=== PATIENT | female | born 1995 | race American Indian/Alaskan Native ===

== ENCOUNTER 2022-07-09 17:23 | Emergency (ER) | payer SELFPAY ==
[2022-07-09 20:00] VITALS: BP 143/89
[2022-07-10] MEDS ORDERED: HYDROcodone/ACETAMINOPHEN 5-325 MG TAB PO ONE (03:47)
[2022-07-10] MEDS ORDERED: IBUPROFEN 800 MG TAB PO ONE (03:47)
--- NOTE | 2022-07-10 04:27 | XRay Report ---
RIGHT HAND 3 VIEW(S) INDICATION / CLINICAL INFORMATION: hand injury, punched glass, pain, swelling COMPARISON: None available. FINDINGS: BONES / JOINT(S): No acute fracture or subluxation. No significant arthritis. SOFT TISSUES: No significant abnormality. ADDITIONAL FINDINGS: None. IMPRESSION: 1. No acute findings. Signer Name: Senthil Neves MD Signed: 07/10/2022 4:23 AM Workstation Name: [id number]
[2022-07-10] MEDS ORDERED: TETANUS,DIPHTHERIA TOXOID ADULT 0.5 ML INJ IM ONE (04:54)
--- NOTE | 2022-07-10 04:56 | Emergency Department Report ---
ED Laceration HPI - HPI Chief Complaint: Laceration/Recheck/Suture Stated Complaint: CUT HAND Occurred When: Yesterday Severity: moderate Tetanus Status: Not up to Date Laceration Symptoms: Yes Foreign Body Sensation, Yes Pain, No Numbness, No Weakness Other History: 26-year-old female presenting with right hand pain injury. Patient reports she punched a glass yesterday and has since been experiencing pain in the extremity. Symptoms associated with swelling, difficulty folding her arm. She denies history of prior fractures dislocations or injury, she denies use of blood thinners, she denies history of bleeding disorder, no numbness tingling or paresthesia. ED Review of Systems ROS: Stated complaint: CUT HAND Other details as noted in HPI Constitutional: denies: chills Eyes: as per HPI ENT: as per HPI Respiratory: denies: cough Cardiovascular: denies: chest pain, palpitations Endocrine: denies: intolerance to cold, intolerance to heat Gastrointestinal: denies: abdominal pain, nausea, vomiting Genitourinary: denies: urgency, dysuria Musculoskeletal: joint swelling, arthralgia Skin: change in color Neurological: denies: headache, paresthesias Psychiatric: denies: anxiety Hematological/Lymphatic: denies: easy bleeding, easy bruising ED Past Medical Hx - Medications Home Medications: Home Medications Medication Instructions Recorded Confirmed Last Taken Type Naproxen [Naprosyn] 375 mg PO BID PRN #20 tablet 07/10/22 Unknown Rx Laceration Physical Exam - Exam General: Vital signs noted. No distress. Alert and acting appropriately. Laceration Location: Upper Extremity Full Body Front + Back: 1 - There is swelling, multiple abrasions and various sites of her fingers. There is swelling of the dorsum as well as the fingers, pain with active ROM, otherwise cap refill sensation pulses are intact. No sign of tendon injury Laceration Exam: Yes Foreign Body (Tiny glass), Yes Normal Distal CMS, No Exposed Tendon, Vessel, or Nerve, No Tendon Injury ED Course Vital Signs 07/09/22 19:58 Temperature 99.2 F Pulse Rate 96 H Blood Pressure 143/89 [Right] ED Medical Decision Making - Medical Decision Making X-rays negative for acute fractures or osseous processes, wound soaked in Betadine solution and thoroughly scrubbed to remove foreign body. Dressed with bacitracin ointment, nonadhesive, as well as supportive wrap. Will discharge patient home with wound care instructions, pain management, icing and follow-up. Patient remained stable nontoxic-appearing, afebrile, ambulating steadily without assistance. Gone over ED findings with patient as well as plan for follow-up. Also discussed return precautions with patient, all questions and concerns addressed. Patient is stable to be discharged follow-up outpatient. Audio voice dictation device used, hence the chart might contain some dictation errors, mispronunciations, wrong spelling and wrong verbiage. Critical care attestation.: If time is entered above; I have spent that time in minutes in the direct care of this critically ill patient, excluding procedure time. ED Disposition Clinical Impression: Hand injury, Abrasions of multiple sites Disposition: HOME / SELF CARE / HOMELESS Is pt being admited?: No Does the pt Need Aspirin: No Condition: Stable Instructions: Wound Care, Pediatric Prescriptions: Naproxen [Naprosyn] 375 mg PO BID PRN #20 tablet PRN Reason: Pain , Severe (7-10) Referrals: KASI ABDALLA MD [Staff Physician] - 3-5 Days Forms: Work/School Release Form(ED)
[2022-07-10] MEDS ORDERED: NEOMY 3.5 MG/BACIT 400 UNITS/POLY B 5000 UNITS/GM OINT PACKET TP ONE (05:22)
[2022-07-10] MEDS ORDERED: TETANUS,DIPH,PERTUSS(ACELL) VACCINE 0.5 ML SYRINGE IM ONE (05:22)
[2022-07-10] MEDS ORDERED: BACITRACIN ZINC OINT 28.4 GM TP SCH (10:00)
== END 2022-07-10 05:10 | disposition home or self-care (01) ==
LOC: ED 17:23
DX: S69.91XA Unspecified injury of right wrist, hand and finger(s), initial encounter (principal); T14.8XXA Other injury of unspecified body region, initial encounter; X58.XXXA Exposure to other specified factors, initial encounter; Y93.89 Activity, other specified; Y92.89 Other specified places as the place of occurrence of the external cause; Y99.8 Other external cause status
CPT/HCPCS: 90471; 90472; 90714; 90715; 99283